=== PATIENT | female | born 1965 | race Caucasian/White ===

== ENCOUNTER 2019-07-09 07:37 | Emergency (ER) | payer OTHER, MEDICARE ==
[2019-07-09 08:08] VITALS: BMI 33.4
--- NOTE | 2019-07-09 08:17 | PDOC ---
History of Present Illness - General History Source: Patient Exam Limitations: No Limitations - History of Present Illness Initial Comments: 07/09/19 08:11 54 yo F with a multiple spinal surgeries (1979 lumbar sacral disc herniation repair; 2013 cervical spine disc spacers 2013), urinary incontinence (since 1979 2/2 spinal surgery; self catheterizes everyday), and recent diarrhea presents to the emergency department s/p fall with questionable LOC. Per the patient, she was having diarrhea at 12am-3am (occurs intermittently) and walked down the hallway at 3am when she fell due to legs giving out. Denies the following symptoms at the time of the fall: fever, chills, nausea, vomiting, chest pain, palpitations, and SOB. She is unsure if she syncopized, but endorses the event to be different from her previous falls as it took her approximately 30-60 minutes to recover. She states s/p fall she has a frontal headache, bilateral knee pain, and cervical neck pain. The patient states she feels nauseous currently. Denies FND, chest pain, SOB, abdominal pain, dysuria, hematuria, diarrhea, and leg swelling. Denies recent travels, immobilizations, anticoagulation use, aspirin and plavix use. Social: Denies tobacco, alcohol, and substance abuse. <Kieran Weaver - Last Filed: 07/09/19 08:33> <Shaun Mayo - Last Filed: 07/09/19 14:25> - General Chief Complaint: Injury Stated Complaint: FALL Past History - Suicide/Smoking/Psychosocial Hx Smoking History: Smoker current status UNK Have you smoked in the past 12 months: No Information on smoking cessation initiated: No Hx Alcohol Use: No Drug/Substance Use Hx: No <Kieran Weaver - Last Filed: 07/09/19 08:33> <Shaun Mayo - Last Filed: 07/09/19 14:25> - Past Medical History Allergies/Adverse Reactions: Allergies Allergy/AdvReac Type Severity Reaction Status Date / Time No Known Allergies Allergy Verified 07/09/19 08:09 Review of Systems - Review of Systems Able to Perform ROS?: Yes Is the patient limited Divehi proficient: No Constitutional: Yes: Weakness. No: Chills, Diaphoresis, Fever HEENTM: No: Eye Pain, Ear Pain, Nose Pain, Throat Pain, Mouth Pain Respiratory: No: Cough, Shortness of Breath, Hemoptysis Cardiac (ROS): Yes: Syncope. No: Symptoms Reported, Chest Pain, Lightheadedness , Palpitations ABD/GI: No: Constipated, Diarrhea, Nausea, Rectal Bleeding, Vomiting, Tarry Stools : No: Burning, Dysuria, Hematuria, Incontinence Musculoskeletal: Yes: Back Pain, Joint Pain, Neck Pain Integumentary: Yes: Other (abrasions on the knee). No: Bruising, Erythema, Rash Neurological: Yes: Dizziness. No: Headache, Numbness, Tingling, Tremors Psychiatric: No: Change in Appetite Endocrine: No: Unexplained Weight Gain Hematologic/Lymphatic: Yes: Anemia <MiamivilleKieran - Last Filed: 07/09/19 08:33> *Physical Exam - Vital Signs Last Vital Signs Temp Pulse Resp BP Pulse Ox 97.5 F L 66 16 152/84 98 07/09/19 07:37 07/09/19 07:37 07/09/19 07:37 07/09/19 07:37 07/09/19 07:37 - Physical Exam General Appearance: Yes: Nourished, Appropriately Dressed, Obese. No: Apparent Distress, Intoxicated HEENT: positive: EOMI, PITER, Normal Voice, Symmetrical, Pharynx Normal, Hearing Grossly Normal. negative: Pale Conjunctivae, Scleral Icterus (R), Scleral Icterus (L), Muffled/Hoarse voice, Pharyngeal Erythema, Tonsillar Exudate, Tonsillar Erythema, Nasal Congestion, Rhinorrhea, Sinus Tenderness, Excessive drooling Neck: positive: Trachea midline, Supple, Tender midline (C7). negative: Lymphadenopathy (R), Lymphadenopathy (L), Tender lateral Respiratory/Chest: positive: Lungs Clear, Normal Breath Sounds. negative: Chest Tender, Respiratory Distress, Accessory Muscle Use, Crackles, Rales, Rhonchi, Stridor, Wheezing Cardiovascular: positive: Regular Rhythm, Regular Rate, S1, S2. negative: Systolic Murmur Gastrointestinal/Abdominal: positive: Normal Bowel Sounds, Flat, Soft. negative : Tender Lymphatic: negative: Adenopathy Musculoskeletal: positive: Normal Inspection, Vertebral Tenderness (lumbar/ thoracic T10-L3. Patienth as previous surgical scar. ). negative: CVA Tenderness Extremity: positive: Normal Capillary Refill, Normal Inspection, Normal Range of Motion. negative: Tender, Swelling, Calf Tenderness Integumentary: positive: Normal Color, Dry, Warm. negative: Swelling, Ecchymosis Neurologic: positive: hand grinder II-XII NML intact, Fully Oriented, Alert, Normal Mood/ Affect, Normal Response, Motor Strength 5/5 <OwenKieran - Last Filed: 07/09/19 08:33> - Vital Signs Last Vital Signs Temp Pulse Resp BP Pulse Ox 97.5 F L 66 16 152/84 98 07/09/19 07:37 07/09/19 07:37 07/09/19 07:37 07/09/19 07:37 07/09/19 07:37 <Shaun Mayo - Last Filed: 07/09/19 14:25> ED Treatment Course - LABORATORY CBC & Chemistry Diagram: 07/09/19 09:55 07/09/19 12:55 - ADDITIONAL ORDERS Additional order review: Laboratory Results 07/09/19 07/09/19 07/09/19 12:55 09:55 09:55 Sodium 141 Cancelled Potassium 3.7 Cancelled Chloride 104 Cancelled Carbon Dioxide 27 Cancelled Anion Gap 10 Cancelled BUN 18.4 H Cancelled Creatinine 0.9 Cancelled Est GFR (CKD-EPI)AfAm 84.61 Cancelled Est GFR (CKD-EPI)NonAf 73.00 Cancelled Random Glucose 119 H Cancelled Calcium 10.1 Cancelled Total Bilirubin 0.9 Cancelled AST 44 H Cancelled ALT 44 Cancelled Alkaline Phosphatase 161 H Cancelled Creatine Kinase 48 Creatine Kinase Index CK-MB (CK-2) Troponin I < 0.02 Total Protein 7.9 Cancelled Albumin 4.4 Cancelled TSH 2.92 Cancelled Urine Color Urine Appearance Urine pH Ur Specific [place] Urine Protein Urine Glucose (UA) Urine Ketones Urine Blood Urine Nitrite Urine Bilirubin Urine Urobilinogen Ur Leukocyte Esterase 07/09/19 07/09/19 09:55 09:54 Sodium Potassium Chloride Carbon Dioxide Anion Gap BUN Creatinine Est GFR (CKD-EPI)AfAm Est GFR (CKD-EPI)NonAf Random Glucose Calcium Total Bilirubin AST ALT Alkaline Phosphatase Creatine Kinase Cancelled Creatine Kinase Index Cancelled CK-MB (CK-2) Cancelled Troponin I Cancelled Total Protein Albumin TSH Urine Color Yellow Urine Appearance Clear Urine pH 5.5 Ur Specific [place] 1.008 L Urine Protein Negative Urine Glucose (UA) Negative Urine Ketones Negative Urine Blood Negative Urine Nitrite Negative Urine Bilirubin Negative Urine Urobilinogen 0.2 Ur Leukocyte Esterase Trace 07/09/19 09:55 RBC 4.89 MCV 89.8 MCHC 34.9 RDW 13.3 MPV 8.4 Neutrophils % 56.9 Lymphocytes % 34.7 Monocytes % 7.0 Eosinophils % 1.0 Basophils % 0.4 - Medications Given in the ED: ED Medications Discontinued Medications Generic Name Dose Route Start Last Admin Trade Name Gladis PRN Reason Stop Dose Admin Acetaminophen 1,000 mg 07/09/19 08:30 07/09/19 09:50 Ofirmev Injection - IVPB 07/09/19 08:31 1,000 mg ONCE ONE Administration Sodium Chloride 1,000 mls @ 1,000 mls/hr 07/09/19 08:30 07/09/19 09:50 Normal Saline - IV 07/09/19 09:29 1,000 mls/hr ASDIR STA Administration Ondansetron HCl 4 mg 07/09/19 08:30 07/09/19 09:50 Zofran Injection IVPUSH 07/09/19 08:31 4 mg ONCE ONE Administration <Shaun Mayo - Last Filed: 07/09/19 14:25> Medical Decision Making - Medical Decision Making 07/09/19 08:57 54 yo F with a multiple spinal surgeries (1979 lumbar sacral disc herniation repair; 2013 cervical spine disc spacers 2013), urinary incontinence (since 1979 2/2 spinal surgery; self catheterizes everyday), and recent diarrhea presents to the emergency department s/p fall with questionable LOC. Initial vitals: Initial Vital Signs Temp Pulse Resp BP Pulse Ox 97.5 F L 66 16 152/84 98 07/09/19 07:37 07/09/19 07:37 07/09/19 07:37 07/09/19 07:37 07/09/19 07:37 Work up: ddx: syncope work up. patient is unsure if she had LOC and this is different than previous falls where she was able to self recover relatively quick. The patient has a remote hx of anemia. She is moving from [place] to [place] on a temporary basis (living with her aunt and uncle; name of PCP Eneida Tompkins NP who has most of her records). Will obtain labs for syncope work up. will obtain head ct, cervical spine ct, thoracic and lumbar CT, and bilateral knee xrays. Interventions: NS, zofran, tylenol <Kieran Weaver - Last Filed: 07/09/19 08:33> *DC/Admit/Observation/Transfer <Kieran Weaver - Last Filed: 07/09/19 08:33> - Discharge Dispostion Decision to Admit order: No <Shaun Mayo - Last Filed: 07/09/19 14:25> Diagnosis at time of Disposition: Back pain Qualifiers: Back pain location: thoracic back pain Chronicity: chronic Back pain laterality : midline Qualified Code(s): M54.6 - Pain in thoracic spine; G89.29 - Other chronic pain - Discharge Dispostion Disposition: HOME - Referrals Referrals: Chris Mathews MD, [facility] [Staff Physician] - - Patient Instructions Printed Discharge Instructions: How to Prevent Falls Additional Instructions: Take all home medications as prescribed. Follow up with your urologist tomorrow. Return to the ED for any severe worsening conditions or for any concerns
--- NOTE | 2019-07-09 08:29 | PDOC ---
Attending Attestation - Resident Resident Name: Kieran Weaver - ED Attending Attestation I have performed the following: I have examined & evaluated the patient, The case was reviewed & discussed with the resident, I agree w/resident's findings & plan, Exceptions are as noted
[2019-07-09] MEDS ORDERED: ONDANSETRON 4 MG/2 ML VIAL IVPUSH ONE (08:30)
[2019-07-09] MEDS ORDERED: SODIUM CHLORIDE 1,000 ML IV STA (08:30)
[2019-07-09] MEDS ORDERED: ACETAMINOPHEN 1000 MG/100 ML VIAL (NON FORMULARY) IVPB ONE (08:30)
[2019-07-09] MEDS ORDERED: ONDANSETRON 4 MG/2 ML VIAL ONE (09:24)
[2019-07-09] MEDS ORDERED: ACETAMINOPHEN INJECTION 100 ML IVPB ONE (09:24)
[2019-07-09 10:07] LABS: BASO % 0.4 % (0-2.0); HEMOGLOBIN 15.3 GM/dL (10.7-15.3); LYMPH % 34.7 % (8-40); MCH 31.3 pg (25.7-33.7); MCHC 34.9 g/dl (32.0-36.0); MEAN CELL VOLUME 89.8 fl (80-96); MEAN PLT VOLUME 8.4 fl (7.5-11.1); NEUT % 56.9 % (42.8-82.8); PLATELET COUNT 250 K/MM3 (134-434); RBC 4.89 M/mm3 (3.60-5.2); RDW 13.3 % (11.6-15.6); WHITE BLOOD COUNT 8.3 K/mm3 (4.0-10.0)
[2019-07-09 10:26] LABS: PH,URINE 5.5 (5.0-8.0); URINE APPEARANCE CLEAR; URINE BILIRUBIN NEGATIVE (NEGATIVE); URINE COLOR YELLOW; URINE GLUCOSE (UA) NEGATIVE (NEGATIVE); URINE KETONE NEGATIVE (NEGATIVE); URINE LEUK ESTERASE TRACE (NEGATIVE); URINE NITRITE NEGATIVE (NEGATIVE); URINE PROTEIN NEGATIVE (NEGATIVE); URINE UROBILINOGEN 0.2 mg/dL (0.2-1.0)
--- NOTE | 2019-07-09 11:27 | PDOC ---
Documentation entered by Ho Martinez SCRIBE, acting as scribe for Shaun Mayo MD. Shaun Mayo MD: This documentation has been prepared by the Juan rider Renju, SCRIBE, under my direction and personally reviewed by me in its entirety. I confirm that the documentation accurately reflects all work, treatment, procedures, and medical decision making performed by me. Attending Attestation - Resident Resident Name: Kieran Weaver - ED Attending Attestation I have performed the following: I have examined & evaluated the patient, The case was reviewed & discussed with the resident, I agree w/resident's findings & plan, Exceptions are as noted - HPI HPI: 07/09/19 10:38 The patient is a 54 year old female with a past medical history of lumbar sacral disc herniation repair, cervical spine disc spacers and urinary incontinence (self catheterizes) who presents to the emergency department for evaluation s/p fall. Patient reports having intermittent episodes of diarrhea from 12am-3am last night. She reports falling at 4am while attempting to walk down the dai, noting that her knees initially buckled before striking her head against the wall. Patient states she remembers falling, but is unsure if she had LOC after her fall. She states she was unable to get up after her fall, and remained down for 30-60 minutes which is abnormal for her. Patient states she has frequent falls due to her spinal surgeries. Denies use of blood thinners or anticoagulation. Currently, the patient endorses neck pain, nausea, and headache. Of note, the patient states she has been diagnosed with a UTI and had arranged to have a relative picker operator her antibiotics this afternoon. Patient denies chest pain, shortness of breath, dizziness, nausea, vomiting, fevers, chills, and constipation. - Physicial Exam PE: 07/09/19 10:38 ROS: A complete review of 10 out of 10 review of systems is taken and is negative apart from what is previously mentioned below and in the HPI. PE: Vitals: Triage Vital signs reviewed General Appearance: no acute distress, well nourished well developed, Head: Atraumatic, Eyes: Pupils equal reactive round, extraocular movement intact Neck: (+)Mild paraspinal neck pain Chest Wall: Nontender Cardiac: Regular rate and rhythm, no murmurs, no rubs, no gallops, Lungs: Clear to auscultation bilaterally, good air movement bilaterally, Abdomen: Soft, non distended, normal bowel sounds, non tender to palpation Extremities: Full range of motion to all extremities, no cyanosis, clubbing, or edema Skin: Warm and dry, no rashes or lesions, no rash, no petechiae Neuro: Strength intact to all extremities, Sensation intact to all extremities, Psych: normal mood, normal affect 07/09/19 11:28 - Medical Decision Making 07/09/19 15:19 The patient is a 54 year old female with a past medical history of lumbar sacral disc herniation repair, cervical spine disc spacers and urinary incontinence (self catheterizes) who presents to the emergency department for evaluation s/p fall. Patient reports having intermittent episodes of diarrhea from 12am-3am last night. She reports falling at 4am while attempting to walk down the dai, noting that her knees initially buckled before striking her head against the wall. Patient states she remembers falling, but is unsure if she had LOC after her fall. She states she was unable to get up after her fall, and remained down for 30-60 minutes which is abnormal for her. Patient states she has frequent falls due to her spinal surgeries. Denies use of blood thinners or anticoagulation. Currently, the patient endorses neck pain, nausea, and headache. Of note, the patient states she has been diagnosed with a UTI and had arranged to have a relative picker operator her antibiotics this afternoon. Patient states falls are very common and this was mechanical and not syncopal Labs CT head/neck/back all wnl Pt.feels comfortable returning home. Has urology follow up tomorrow. Findings the need for follow up and strict return instructions d/w patient. Heart Score/ECG Review - ECG Impressions Comment:: 07/09/19 15:22 EKG performed at 840am NSR [address] elevations, no TWI Interpreted by me
--- NOTE | 2019-07-09 13:01 | EKG ---
Test Reason : Blood Pressure : / mmHG Vent. Rate : 067 BPM Atrial Rate : 067 BPM P-R Int : 134 ms QRS Dur : 090 ms QT Int : 432 ms P-R-T Axes : 049 015 074 degrees QTc Int : 456 ms POOR DATA QUALITY, INTERPRETATION MAY BE ADVERSELY AFFECTED NORMAL SINUS RHYTHM NORMAL ECG NO PREVIOUS ECGS AVAILABLE Confirmed by MD Mari, Blayne ([id number]) on 07/09/2019 1:01:10 PM Referred By: Confirmed By:Blayne Guerra MD
[2019-07-09] MEDS ORDERED: KETOROLAC TROMETHAMINE 15 MG/ML VIAL IVPUSH ONE (13:41)
[2019-07-09 13:48] LABS: ALBUMIN 4.4 g/dl (3.4-5.0); ALK PHOS 161 U/L (45-117); ANION GAP 10 MMOL/L (8-16); BILIRUBIN,TOTAL 0.9 mg/dL (0.2-1); BLOOD UREA NITROGEN 18.4 mg/dL (7-18); CALCIUM 10.1 mg/dL (8.5-10.1); CHLORIDE 104 mmol/L (98-107); CO2 27 mmol/L (21-32); CREATININE 0.9 mg/dL (0.55-1.3); GLUCOSE,RANDOM 119 mg/dL (74-106); POTASSIUM 3.7 mmol/L (3.5-5.1); SGOT/AST 44 U/L (15-37); SGPT/ALT 44 U/L (13-61); SODIUM 141 mmol/L (136-145); TOT PROT 7.9 g/dl (6.4-8.2)
[2019-07-09] MEDS ORDERED: CYCLOBENZAPRINE HCL 5 MG TABLET PO STA (14:22)
[2019-07-09] MEDS ORDERED: KETOROLAC TROMETHAMINE 15 MG/ML VIAL ONE (14:32)
[2019-07-09] MEDS ORDERED: CYCLOBENZAPRINE HCL 10 MG TABLET (FP) ONE (14:32)
[2019-07-09 15:23] VITALS: BP 159/84; PULSE 77; TEMP 98.3
== END 2019-07-09 15:14 | disposition home or self-care (01) ==
LOC: JER 07:37
PROC: 3E0337Z Introduction of Electrolytic and Water Balance Substance into Peripheral Vein, Percutaneous Approach (ICD-10-PCS; principal; 2019-07-09)
PROC: 3E033NZ Introduction of Analgesics, Hypnotics, Sedatives into Peripheral Vein, Percutaneous Approach (ICD-10-PCS; 2019-07-09)
PROC: 3E033GC Introduction of Other Therapeutic Substance into Peripheral Vein, Percutaneous Approach (ICD-10-PCS; 2019-07-09)
PROC: 3E0333Z Introduction of Anti-inflammatory into Peripheral Vein, Percutaneous Approach (ICD-10-PCS; 2019-07-09)
DX: M54.6 Pain in thoracic spine (principal); G89.29 Other chronic pain; M54.2 Cervicalgia; R11.0 Nausea; W18.39XA Other fall on same level, initial encounter; Y93.01 Activity, walking, marching and hiking; Y92.018 Other place in single-family (private) house as the place of occurrence of the external cause; Y99.8 Other external cause status; R29.6 Repeated falls; N39.498 Other specified urinary incontinence
CPT/HCPCS: 36415; 70450-TC; 71045-TC-FY; 72125-TC; 72128-TC; 72131-TC; 73562-TC-LT-FY; 73562-TC-RT-FY; 80053; 81003; 82550; 84443; 84484; 85025; 87086; 87186; 93005; 93010; 96361; 96374; 96375; 99283-25; J0131; J7030